=== PATIENT | male | born 1995 | race Two or more races ===

== ENCOUNTER 2018-08-04 05:58 | Emergency (ER) | payer SELFPAY ==
[2018-08-04] MEDS ORDERED: LIDOCAINE 2% VISCOUS SOLN 20 ML UDCUP PO ONE (07:10)
[2018-08-04] MEDS ORDERED: BUPIVACAINE HCL 0.75% INJ/PF (7.5 MG/1 ML) 10 ML SDV INJ ONE (07:14)
[2018-08-04] MEDS ORDERED: PENICILLIN V POTASSIUM 500 MG TABLET PO ONE (07:15)
--- NOTE | 2018-08-04 07:17 | ER Document Report ---
Addendum entered and electronically signed by GAURANG HENRY PA-C 08/04/18 08:06: Procedures - Additional Procedures Dental block Notes: 08/04/18 08:05 Inferior alveolar dental block was performed using 0.5% Sensorcaine without epi. 22-gauge needle was inserted and the posterior gumline with no aspiration of blood instilled 2 mL of Marcaine, good analgesia performed patient tolerated well Original Note: HPI - HPI Patient complains to provider of: tooth pain Time Seen by Provider: 08/04/18 07:01 Pain Level: 5 Context: 22-year-old male with no past medical history presents to the emergency department for tooth pain. Patient states the pain started 2 days ago. Patient denies any fever, chills, nausea, vomiting. Patient states that he is going to the dentist this morning but just could not tolerate the pain. He states the pain is 10 out of 10. Patient denies any trismus or neck stiffness. Past Medical History - Social History Smoking Status: Unknown if Ever Smoked Family History: None Patient has suicidal ideation: No Patient has homicidal ideation: No Renal/ Medical History: Denies: Hx Peritoneal Dialysis Vertical Provider Document - CONSTITUTIONAL Exam Limitations: No Limitations - HEENT HEENT: Atraumatic, Normocephalic. negative: Pharyngeal Exudate, Pharyngeal Tenderness, Pharyngeal Erythema Mouth Diagram: 1 - small hematoma buccal side - NECK Neck: Normal Inspection, Supple Course - Re-evaluation Re-evalutation: 08/04/18 07:45 Patient presents with tooth pain to #30. There is a small hematoma present. Discussed with Dr. Gonzalez. Plan is to perform a dental block using bupivacaine. 08/04/18 07:54 Performed alveolar nerve dental block. Injected bupivacaine 1 mL. Aspirated with no blood return. Patient tolerated procedure well. Warned patient about adverse reactions like anaphylaxis. Patient denied any drug allergies. Instructed patient he needs to follow-up with dentist. - Vital Signs Vital signs: Temp Pulse Resp BP Pulse Ox 98.0 F 70 14 135/70 H 96 08/04/18 06:03 08/04/18 06:03 08/04/18 06:03 08/04/18 06:03 08/04/18 06:03 Discharge - Discharge Clinical Impression: Tooth pain Condition: Good Disposition: HOME, SELF-CARE Instructions: [facility], Penicillin V K ([facility]), Toothache ([facility]) Additional Instructions: You are seen in the emergency department this morning for tooth pain. It is important that you follow-up with a dentist to get definitive treatment. We provided you with a dental block. This should give you relief for a few hours. If you develop high fever, chills, your throat starts to close up and you cannot breathe, severe nausea or vomiting, you pass out, or have any other concerning symptoms please immediately return to the emergency department. Prescriptions: Penicillin V Potassium [Penicillin Vk 500 mg Tablet] 500 mg PO QID #28 tablet
[2018-08-04 07:55] VITALS: BP 140/76
== END 2018-08-04 07:55 | disposition home or self-care (01) ==
LOC: ER 05:58
DX: S00.532A Contusion of oral cavity, initial encounter (principal); K08.89 Other specified disorders of teeth and supporting structures; X58.XXXA Exposure to other specified factors, initial encounter
CPT/HCPCS: 99282; 64400; J3490